=== PATIENT | female | born 1965 | race American Indian/Alaskan Native ===

== ENCOUNTER 2018-12-24 10:15 | Outpatient (CLI) | payer OTHER ==
--- NOTE | 2018-12-24 13:34 | Mammography Report ---
DIGITAL SCREENING MAMMOGRAM WITH CAD, 12/24/2018 INDICATION: Routine screening mammography. History of bilateral silicone injections for breast augmen tation. TECHNIQUE: Digital bilateral 2D mammography was obtained in the craniocaudal and mediolateral obliq ue projections. This examination was interpreted with the benefit of Computer-Aided Detection analysi s. COMPARISON: None available. FINDINGS: Breast Density: The breasts are heterogeneously dense, which may obscure small masses. Too numerous to count bilateral hyperdense circumscribed masses of varying sizes which are consistent with silicone granulomas. The number and density of masses limits the sensitivity of mammography. No architectural distortion or suspicious calcifications. IMPRESSION: No mammographic evidence of malignancy. 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 MRI would be a more sensitiv e screening test. Recommend breast cancer risk assessment by a breast surgeon and bilateral breast MR I if this patient is at high risk for breast cancer. Follow up recommendation: Routine yearly BI-RADS Category 2: Benign. A "normal" or negative report should not discourage follow up or biopsy of a clinically significant f inding. A written summary of these findings will be mailed to the patient. The patient will be entered into a mammography reporting system which will generate a reminder letter for the patient's next appointmen t at the appropriate interval. [employer] recommends yearly mammograms starting at age 40 and continuing as l raheem as a woman is in good health. Breast MRI is recommended for women with an approximate 20-25% or greater lifetime risk of breast cancer, including women with a strong family history of breast or ova brian cancer or who have been treated for Hodgkin's disease. Signer Name: Narciso Garcia MD Signed: 12/24/2018 1:30 PM Workstation Name: [id number]
== END 2018-12-24 10:16 | disposition home or self-care (01) ==
LOC: SPVWC 10:15
PROVIDERS: ATTEND Obstetrics & Gynecology
DX: Z12.31 Encounter for screening mammogram for malignant neoplasm of breast (principal)
CPT/HCPCS: 77067